=== PATIENT | female | born 1945 | race American Indian/Alaskan Native ===

== ENCOUNTER 2024-06-08 09:50 | Day surgery (SDC) | payer OTHER, MEDICARE, SELFPAY ==
[2024-06-08] VITALS (9 sets, daily range): BP systolic 139–208; BP diastolic 71–128; PULSE 60–105; RESP 13–22; TEMP 36.6–36.7; O2SAT 94–100; BMI 19.8
[2024-06-08] MEDS: DiphenhydrAMINE INJ 50 MG/ML VIAL 25 MG IV (11:51)
[2024-06-08] MEDS: hydrALAZINE INJ 20 MG/ML VIAL 10 MG IV (11:55)
[2024-06-08] MEDS: MIDAZOLAM INJ 1 MG/ML VIAL 2 ML (ASD USE ONLY) 2 MG IV (11:55)
[2024-06-08] MEDS: fentaNYL CIT INJ 50 mCg/ML AMP 2ML (ASD USE ONLY) IV (11:56)
== END 2024-06-08 13:10 | disposition home or self-care (01) ==
PROVIDERS: PCP Family Medicine; Referring Provider Specialist; Visit Provider Specialist
PROC: 0DBE8ZX Excision of Large Intestine, Via Natural or Artificial Opening Endoscopic, Diagnostic (ICD-10-PCS; CPT 45380; principal; 2024-06-08 11:15)
DX: K52.9 Noninfective gastroenteritis and colitis, unspecified (principal); K63.89 Other specified diseases of intestine; K62.89 Other specified diseases of anus and rectum; K64.9 Unspecified hemorrhoids; K57.30 Diverticulosis of large intestine without perforation or abscess without bleeding
CPT/HCPCS: 45380; A4649; J0360; J1200; J2250; J3010

== ENCOUNTER 2024-08-02 11:37 | Emergency (ER) | payer OTHER, MEDICARE, SELFPAY ==
--- NOTE | 2024-08-02 11:51 | XR_ITS ---
Examination: Bilateral AP pelvis 2 views TECHNIQUE: AP pelvis acute position, AP pelvis hips abduction position 2 views Exam date and time: August 02, 2024 1059 hours INDICATIONS: Hip pain beginning today. FINDINGS: Moderate osteopenia Mild to moderate narrowing hip joints No right or left hip fracture or hip dislocation Bones of the pelvis intact IMPRESSION: Mild to moderate bilateral hip osteoarthritis No hip or pelvic fracture
--- NOTE | 2024-08-02 11:51 | XR_ITS ---
Examination: CT chest, without intravenous contrast. CT abdomen, without intravenous contrast. CT pelvis, without intravenous contrast. 2-D sagittal and coronal reconstructions. 3-D reconstructions. Date and time of exam:August 02, 2024 1248 hours INDICATIONS: Patient fell last night with injury to the chest and abdomen, chest pain abdomen pain CTDI vol (mgy) 5.68 DLP (MGycm)414 Technique: Multiple CT images, 3.0 mm slice thickness, obtained chest, abdomen, pelvis, with the high-resolution 64 slice scanner.. Sagittal and coronal 2-D reconstructions are obtained. 3-D reconstructions Low dose protocols were performed. One or more of the following dose reduction techniques were used; automated exposure control, adjustment of the mA and/or KV according to patient size, use of iterative reconstruction technique. Findings: Thoracic aorta pulmonary arteries appear intact on this noncontrast study No pneumothorax, pulmonary contusion or hemothorax The manubrium, the body the sternum intact No thoracic vertebral body compression fracture Ribs appear intact No liver splenic or renal laceration Partial left nephrectomy No perinephric hematoma Heavy calcification abdominal aorta, abdominal aorta is intact No free blood in the abdomen or pelvis Absent gallbladder Negative for pneumoperitoneum Urinary bladder intact Hips bones of the pelvis, sacral segments lumbar vertebral bodies intact IMPRESSION: Thoracic aorta pulmonary arteries intact No hemopericardium, pneumothorax, pulmonary contusion or hemothorax No abdominal parenchymal laceration Abdominal aorta intact No free blood in the abdomen or pelvis Osseous structures intact
--- NOTE | 2024-08-02 11:51 | XR_ITS ---
Examination: CT cervical spine without contrast 2-D sagittal reconstructions 2-D coronal reconstructions 3-D reconstructions. Exam date and time:August 02, 2024 1239 hours INDICATIONS: Patient fell last night with injury to the neck, neck pain CTDI:vol (mGy) 7.06 DLP: (mGycm) 1140 Technique: Multiple 2 mm axial sections of the cervical spine have been obtained. The coronal and sagittal reconstructions have been obtained. 3-D reconstructions have been obtained. Low dose protocols were performed. One or more of the following dose reduction techniques were used; automated exposure control, adjustment of the mA and/or KV according to patient size, use of iterative reconstruction technique. Findings: Axial sections demonstrate intact base of the skull. C1 exhibit satisfactory relationship to the odontoid. No acute cervical vertebral body fracture seen. Alignment posterior spinous processes satisfactory. Impression: No acute cervical fracture.
--- NOTE | 2024-08-02 11:51 | XR_ITS ---
Examination: CT brain head without contrast. 2-D sagittal coronal reconstructions Date and time of exam:August 02, 2024 1239 hours INDICATIONS: Patient fell last night with injury to the head, head pain CTDI: vol (mGy):45.7 DLP: (mGycm):875 Technique: Multiple CT axial sections of the brain have been obtained, 5 mm slice thickness. Contrast has not been administered. 2-D sagittal, coronal reconstructions have been obtained Low dose protocols were performed. One or more of the following dose reduction techniques were used; automated exposure control, adjustment of the mA and/or KV according to patient size, use of iterative reconstruction technique. Findings: No significant ventricular enlargement. 5 mm calcified left frontal convexity mass image 11 likely incidental small meningioma Intra-axial or extra-axial hemorrhage density is not seen. No mass effect or midline shift Basal cisterns are not remarkable. Fourth ventricle is midline. Cranial vault intact. Impression: Negative for acute hemorrhage, mass effect or midline shift Elective brain MRI MRA follow-up pre and postcontrast would confirm 5 mm incidental left frontal convexity meningioma
--- NOTE | 2024-08-02 11:52 | PD.EDHIP ---
Lower Extremity Injury RME/HPI General Chief Complaint: Hip Injury/Pain Stated Complaint: LACERATION TO SCALP WITH BRUISED HIPS FROM FALL Time Seen by Provider: 08/02/24 11:44 Source: patient Arrival date/time: 08/02/24 11:37 78-year-old female with a history of hyperlipidemia presents to the emergency room with a chief complaint of pain to her bilateral hips, and a laceration to her scalp that occurred after she fell yesterday after tripping over a rug. Patient states she is on Plavix. Mode of arrival: ambulatory Limitations: no limitations Related Data Home Medications ?Medication ?Instructions ?Recorded ?Confirmed biotin 5,000 mcg disintegrating 5,000 mcg PO QDAY 04/16/22 06/08/24 tablet turmeric 400 mg capsule 1,000 mg PO DAILY 04/16/22 06/08/24 gabapentin 300 mg capsule 300 mg PO TID 06/08/24 06/08/24 Previous Rx's ?Medication ?Instructions ?Recorded atorvastatin 80 mg tablet 80 mg PO HS #30 tabs 03/21/24 Allergies Allergy/AdvReac Type Severity Reaction Status Date / Time No Known Allergies Allergy Verified 08/02/24 11:40 Review of Systems Review of Systems Systems Reviewed: All systems reviewed, normal except as documented Constitutional Constitutional: Reports system reviewed and no additional complaints, except as documented, Denies fatigue, Denies fever(s), Denies headache(s) and Denies weakness Eyes Eyes: Reports system reviewed and no additional complaints, except as documented, Denies blurry vision and Denies change in vision ENT Ears, Nose, Mouth, and Throat: Reports system reviewed and no additional complaints, except as documented, Denies otalgia, Denies headache(s), Denies nasal congestion, Denies throat swelling and Denies vertigo Cardiovascular Cardiovascular: Reports system reviewed and no additional complaints, except as documented, Denies chest pain, Denies dyspnea and Denies dyspnea on exertion Respiratory Respiratory: Reports system reviewed and no additional complaints, except as documented, Denies chest congestion, Denies cough, Denies dyspnea, Denies dyspnea on exertion and Denies wheezing Gastrointestinal Gastrointestinal: Reports system reviewed and no additional complaints, except as documented, Denies abdominal pain, Denies cramping, Denies nausea and Denies vomiting Genitourinary Genitourinary: Reports system reviewed and no additional complaints, except as documented Musculoskeletal Musculoskeletal: Reports system reviewed and no additional complaints, except as documented, Reports abnormal gait, Reports arthralgias and Reports back pain Integumentary/Breasts Skin/Breast: Reports system reviewed and no additional complaints, except as documented and Denies wounds Neurologic Neurologic: Reports system reviewed and no additional complaints, except as documented, Reports abnormal gait, Denies confusion, Denies headache(s), Denies lack of coordination, Denies vertigo and Denies weakness Psychiatric Psychiatric: Reports system reviewed and no additional complaints, except as documented, Denies anxiety, Denies confusion, Denies depression, Denies paranoia, Denies suicidal ideation and Denies tactile hallucinations Endocrine Endocrine: Reports system reviewed and no additional complaints, except as documented and Denies fatigue Hematologic/Lymphatic Hematologic/Lymphatic: Reports system reviewed and no additional complaints, except as documented and Denies lymphadenopathy Allergic/Immunologic Allergic/Immunologic: Reports system reviewed and no additional complaints, except as documented, Denies throat swelling, Denies urticaria and Denies wheezing Past Medical History Past Medical History NEUROLOGIC: Positive Neurological Disorders and Transient Ischemic Attacks (TIA); Negative Cerebrovascular Accident or Seizures CARDIAC: Positive Cardiac Disorders, Hypercholesterolemia and Hypertension; Negative Congestive Heart Failure, Edema or Cellulitis RESPIRATORY: Negative Chronic Obstructive Pulmonary Disease (COPD), Asthma, Tuberculosis or Sleep Apnea GASTROINTESTINAL: Positive Gastrointestinal Disorders (Abdominal pain), Gall Bladder Disease and Gastroesophageal Reflux Disease; Negative Hepatitis GENITOURINARY: Negative Genitourinary Disorders or Renal Disease REPRODUCTIVE: Positive Previous Pregnancies MUSCULOSKELETAL: Positive Musculoskeletal Disorders, Arthritis and Fractures ENT: Positive Cataracts ENDOCRINE: Negative Endocrine Disorders, Diabetes Mellitus Type 1 or Diabetes Mellitus Type 2 HEMATOLOGIC: Positive Blood Disorders and Anemia; Negative Sickle Cell Disease OTHER HISTORY: Positive Chicken Pox, Measles, Mumps and Cancer (Left kidney); Negative Hospitalization, Autoimmune Disease, Shingles, Falls, Blood Transfusions, Anesthesia Reactions, Organ Transplant, Chemotherapy, Radiation Therapy or MRSA Family History FAMILY HISTORY: Positive Family Psychiatric Problems, Family Cardiac Disorders and Family Surgery; Negative Family Respiratory Disorders, Family Gastrointestinal Problems, Family Cancer or Family Anesthesia Reaction Surgical History SURGICAL: Positive Angiogram and Tonsillectomy; Negative Pacemaker, Endocrine Surgery, Nephrectomy, Joint Replacement, Neurologic Surgery, Mastectomy or Organ Transplant Social History SMOKING STATUS: Never smoker ED Exam General Limitations: Present no limitations General appearance: Present alert and in no apparent distress Head Head exam: Present atraumatic Eye Eye exam: Present normal appearance, PERRL and EOMI ENT ENT exam: Present normal exam, normal oropharynx and mucous membranes moist Neck Neck exam: Present normal inspection, full ROM and trachea midline Chest Chest inspection: Present normal inspection and symmetric chest wall rise Respiratory Respiratory exam: Present normal lung sounds bilaterally Cardiovascular Cardiovascular exam: Present regular rate, normal rhythm and normal heart sounds Abdominal Exam Abdominal exam: Present soft and normal bowel sounds Extremities Exam Extremities exam: Present normal inspection and full ROM Back Exam Back exam: Present normal inspection and full ROM Neurological Exam Neurological exam: Present alert, oriented X3, CN II-XII intact, normal gait and reflexes normal Expanded Neurological Exam Patient oriented to: Present person, place and time Speech: Present fluid speech Cranial nerves: Normal: EOM function (II, III, IV, ), facial sensation (V) and facial palsy (VII) Cerebellar function: Normal: finger to nose Cerebellar function: Present normal gait Motor strength - LUE: 5/5 Motor strength - RUE: 5/5 Motor strength - LLE: 5/5 Motor strength - RLE: 5/5 Coma scale eye opening: spontaneous Coma scale motor response: obeys commands Coma scale verbal response: oriented Coma scale total: 15 Psychiatric Psychiatric exam: Present normal affect and normal mood Skin Skin exam: Present warm, dry, intact and normal color Course Quality Measures none Orders Category Date Time Status CT cervical spine wo con Stat Exams 08/02/24 11:[address] chest abdomen pelvis wo Stat Exams 08/02/24 11:[address] head/brain wo con Stat Exams 08/02/24 11:51 Completed XR hip BI w pelvis 3-4V Stat Exams 08/02/24 11:51 Completed HYDROcodone*/APAP 5/325 [Ava 5/325] Med 08/02/24 13:04 Discontinued 1 tab PO X1 ONE Vital Signs Vital signs: Vital Signs Temperature 98.1 F 08/02/24 11:57 Pulse Rate 72 08/02/24 11:57 Respiratory Rate 18 08/02/24 11:57 Blood Pressure 126/84 08/02/24 11:57 Pulse Oximetry (%) 95 08/02/24 11:57 Oxygen Delivery Method Room Air 08/02/24 11:57 Extremity Injury, Lower MDM Narrative MDM Narrative:: 78-year-old female with a history of hyperlipidemia presents to the emergency room with a chief complaint of pain to her bilateral hips, and a laceration to her scalp that occurred after she fell yesterday after tripping over a rug. Patient states she is on Plavix. The patient is hemodynamically stable and nontoxic-appearing The patient is having tenderness to the bilateral hips with palpation. Patient also has a small laceration to the scalp area on the left side of her head with dried blood from yesterday. A CT of the head and brain was completed and was negative for any acute hemorrhage mass effect or midline shift. CT of the cervical neck was completed and was negative for any acute fracture. X-rays of the bilateral hips were completed and were negative for any acute fractures. Patient was discharged and educated to follow-up with primary care provider and return to the emergency room for any evidence of worsening signs or symptoms Patient data External records reviewed:: [facility] previous records Clinical information provided by:: patient Social determinants that could affect healthcare access:: none Patient has the following chronic illnesses:: No chronic illness How is presenting disease/condition affected by chronic disease/condition?: no chronic disease Evaluation data The following diagnostics were reviewed and interpreted by me:: lab results and radiology exam(s) Lab and/or radiology exams considered but not ordered:: Labs and radiology exams considered and ordered Interpretation Summary: Head and brain CT-no acute hemorrhage mass effect or midline shift Cervical spine CT no acute fracture Bilateral hip x-rays-no acute fractures Medications / Prescriptions Medications or Prescriptions considered but not ordered:: Medication given Medication administrations:: Medication Administration History Discontinued Medications Hydrocodone Bitart/Acetaminophen (Hydrocodone/Apap 5/325 Tablet) 1 tab PO X1 ONE Stop: 08/02/24 13:05 Last Admin: 08/02/24 13:20 Dose: 1 tab Documented By: Medication given Consultations Consultation(s) initiated? (list below): No Diagnosis Extremity Injury, Lower Differential Diagnosis: other (Closed head injury/concussion/) Most likely diagnosis given after review of the tests above:: Closed head injury Admission Indicated Admission indicated?: not indicated Admission Request Was there a request for admission?: No Disposition Plan Disposition Plan: Discharge Discharge Attestation Discharge Attestation: The patient and all family members were given an opportunity to ask questions and understood the discharge instructions. Discharge instructions specifically effects, indications for sooner follow up or return to the emergency department, and the expected course of current diagnosis. Patient condition: Stable Discharge Plan Plan Patient Disposition: HOME (Self Care) Disposition Comment: Stable Prescriptions/Referrals Prescriptions/Med Rec: No Action atorvastatin 80 mg tablet 80 mg PO HS Qty: 30 3RF biotin 5,000 mcg Tablet,Disintegrating 5,000 mcg PO QDAY turmeric 400 mg Capsule 1,000 mg PO DAILY gabapentin 300 mg capsule 300 mg PO TID Patient Comments: TAKE 1 CAPSULE BY MOUTH THREE TIMES DAILY Referrals: Denise Weems MD [Primary Care Provider] - In 1 week Problem List Clinical Impression: Closed head injury Patient/Caregiver Discharge Instructions Education Materials: ED Head Injury (Adult) Additional Instructions: Please follow-up with your primary care provider in the next [address] of your head and brain, neck, chest abdomen and pelvis were all completed and were all negative for any acute findings. The x-rays of your hips were completed and were also negative for any acute fractures however there is some arthritis in the area. For any evidence of worsening signs or symptoms please return to the emergency room immediately Print Language: Kiswahili Stand Alone Forms: Shayy Award Info., Patient Portal Info Letter PA/MAREN Supervising Physician JASON/MAREN Supervising Physician: Dr. Leal
[2024-08-02 11:57] VITALS: BP 126/84; PULSE 72; RESP 18; TEMP 36.7; O2SAT 95; BMI 20.9
[2024-08-02] MEDS: HYDROcodone/APAP 5/325 TABLET 1 TAB PO (13:20)
== END 2024-08-02 15:21 | disposition home or self-care (01) ==
PROVIDERS: Emergency Provider Emergency Medicine; PCP Family Medicine
DX: S01.01XA Laceration without foreign body of scalp, initial encounter (principal); M25.552 Pain in left hip; M25.551 Pain in right hip; I10 Essential (primary) hypertension; E78.00 Pure hypercholesterolemia, unspecified; Z86.73 Personal history of transient ischemic attack (TIA), and cerebral infarction without residual deficits; Z79.02 Long term (current) use of antithrombotics/antiplatelets; W18.09XA Striking against other object with subsequent fall, initial encounter
CPT/HCPCS: 70450; 71250; 72125; 73522; 74176; 99284; A9270

== ENCOUNTER → 2024-10-03 | Outpatient (CLI) | payer MEDICARE, OTHER, SELFPAY ==
--- NOTE | 2024-10-03 11:30 | XR_ITS ---
Examination: Ultrasound soft tissue extremity TECHNIQUE: Grayscale sonographic images soft tissue right shoulder Exam date and time: October 03, 2024 1128 hours INDICATIONS: Palpable lump right shoulder note is beginning 5 years ago. FINDINGS: No cystic or solid shoulder mass noted IMPRESSION: No cystic or solid mass noted
== END | disposition home or self-care (01) ==
PROVIDERS: PCP Internal Medicine; Referring Provider Internal Medicine; Visit Provider Internal Medicine
DX: R22.9 Localized swelling, mass and lump, unspecified (principal)
CPT/HCPCS: 76882

== ENCOUNTER → 2024-10-24 | Outpatient (CLI) | payer MEDICARE, OTHER, SELFPAY ==
--- NOTE | 2024-10-24 13:00 | XR_ITS ---
Examination: Screening digital mammography, bilateral Computer aided detection 3-D breast Tomosynthesis, bilateral Date and time of exam: October 24, 2024 1254 hours Compared to mammograms dating to February 22, 2006 Indication: Screening Technique: Nonmagnified MLO, CC views of the breasts to been obtained, reconstructed from 3-D Tomosynthesis images. R2 computer aided detection program utilized for evaluation of suspicious masses and/or abnormal calcifications. 3-D Tomosynthesis images obtained. Findings: Scattered areas of fibroglandular density. Benign calcifications. No interval suspicious masses Impression: BI-RADS category II: Benign Findings. Recommend 1 year follow-up mammogram.
== END | disposition home or self-care (01) ==
PROVIDERS: PCP Internal Medicine; Referring Provider Internal Medicine; Visit Provider Internal Medicine
DX: Z12.31 Encounter for screening mammogram for malignant neoplasm of breast (principal); R92.323 Mammographic fibroglandular density, bilateral breasts; R92.1 Mammographic calcification found on diagnostic imaging of breast
CPT/HCPCS: 77063; 77067

== ENCOUNTER → 2025-06-10 | Outpatient (CLI) | payer MEDICARE, OTHER, SELFPAY ==
--- NOTE | 2025-06-10 15:30 | XR_ITS ---
EXAMINATION: Ultrasound soft tissue extremity right shoulder TECHNIQUE: Grayscale sonographic images soft tissue right shoulder Date and time: June 10, 2025, 1500 hours INDICATIONS: Palpable lump on the right shoulder 5 years. FINDINGS: Soft tissue mass at the area of concern right shoulder, 2.6 x 0.4 x 1.3 cm IMPRESSION: Isoechoic soft tissue mass at the area of concern right shoulder 2.6 x 1.4 x 1.3 cm most consistent with lipoma, recommend 6-month follow-up
== END | disposition home or self-care (01) ==
LOC: CDIM 14:43
PROVIDERS: PCP Internal Medicine; Referring Provider Internal Medicine; Visit Provider Internal Medicine
DX: R22.31 Localized swelling, mass and lump, right upper limb (principal)
CPT/HCPCS: 76882